=== PATIENT | male | born 1950 | race Caucasian/White ===

== ENCOUNTER → 2020-02-15 14:44 | Outpatient (BNVA) | payer OTHER, SELFPAY | PROVIDERS: PCP Internal Medicine; Visit Provider Urology | DX: Z76.89 Persons encountering health services in other specified circumstances (principal) ==

== ENCOUNTER → 2021-02-20 12:27 | Outpatient (BNVA) | payer OTHER, SELFPAY | PROVIDERS: PCP Internal Medicine; Visit Provider Urology ==

== ENCOUNTER → 2022-02-20 13:20 | Outpatient (BNVA) | payer OTHER, SELFPAY | PROVIDERS: PCP Internal Medicine; Visit Provider Urology | DX: C61 Malignant neoplasm of prostate (principal) ==

== ENCOUNTER 2023-02-21 13:44 | Outpatient (AMB) | payer OTHER, SELFPAY ==
--- NOTE | 2023-02-21 13:45 | MHC.OFFVIS ---
Intake Intake Visit Reasons: 1Y PSA(psa?) Intake Note: Patient is Present for Telephone Follow Up Urology Med: None Antibiotic Allergy: None Blood Thinner: None Allergies No Known Allergies Allergy (Verified 02/20/22 13:20) HPI HPI Comments History of Present Illness Details Nitin is a pleasant male. He is a patient of . He is seen for the following urologic conditions - prostate cancer - erectile dysfunction Telemedicine evaluation 15 minute consultation DoxSiOxitry marcela Video attempted PSA remains low Represcribed medication for erections Use of TriMix for erectile management Prostate cancer: Robotic prostatectomy 2011 intermediate risk Everything stable Minimal leakage Erectile dysfunction that is responsive to medications Prostate cancer was diagnosed Dr Starks 2011, Intermediate risk, low volume per risk assessment.. Diagnosis was reached by needle biopsy, for elevated PSA. The Suraj grade is 3+4. TNM Classification of Malignant Tumours (TNM) T1c. The D'Alyce (NCCN) risk category is Intermediate Risk (PSA 10-20, Gl 7, T2) Initial therapy included Robotic prostatectomy, Followup with observation. Recent labs included a PSA (prostate-specific antigen) below 0.1, October 2015, < 0.1, May 2015 0.1, T 598 11/17 - PSA < 0.1, 06/18 , a PSA (prostate-specific antigen), < 0.1, 01/18 < 0.1, 01/19 < 0.1, 02/19 <0.1, 02/20 <0.1, 02/21 <0.1, 02/22 <0.1 Associated conditions erectile dysfunction Yes rectal urgency Yes Therapeutic plan: Doing well with urination Erectile dysfunction: Trimix - needs Rx He presents today for for continued evaluation and management of erectile dysfunction. Procedure(s)/Diagnosis causing dysfunction include a radical prostatectomy Current treatment includes Penile injection Tri-mix 25 units Treatment side effects include - Did have episode of priapism after initial testing a number of years ago. [facility] Medical History Prostate cancer OA (osteoarthritis) Allergies Nocturia Incomplete emptying of bladder Strain of rectus abdominis muscle Inguinal pain Prostate cancer Erectile dysfunction Urgency-frequency syndrome Surgical History History of surgery Review of Systems Const All systems reviewed & are unremarkable except as noted in HPI and below Reports no additional complaints Resp Reports no additional complaints GI Reports no additional complaints Reports as per HPI Musc Reports no additional complaints Physical Exam Telemedicine evaluation Appropriate responses Regular breathing rate and rhythm HEENT Head: Yes normal to inspection Ears: hearing grossly normal bilaterally Eyes General: appearance normal, both eyes and all related structures Neck Neck: Yes normal visual inspection Chest Chest palpation & inspection: normal inspection of the chest Resp Effort & Inspection: normal respiratory effort and able to speak in complete sentences Assessment & Plan Assessment & Plan (1) Prostate cancer: Comment: 2011 RALP for 4+3 Code(s): C61 - Malignant neoplasm of prostate (2) Erectile dysfunction after radical prostatectomy: Code(s): N52.31 - Erectile dysfunction following radical prostatectomy Plan Three month follow-up office Patient Instructions: Imaging studies, laboratory and physical exam results were discussed and reviewed in detail. No major barriers to patient understanding were identified. An opportunity to ask questions regarding the treatment plan was provided. All questions were answered. The patient expressed understanding and agreement with the above treatment plan. The patient is aware they should contact our office by phone for worsening of their current condition or the appearance of new urologic symptoms. Compliance is encouraged with any medications and followup testing that is ordered. It is a privilege to participate in the urologic care of your patient. If you have any questions or concerns regarding treatment for the above conditions, or other urologic issues, please do not hesitate to contact me. The office telephone contact is [phone]. This note is constructed using voice recognition software. While every effort has been made to ensure accuracy preschool paraprofessional errors may have been included. Yours sincerely, Dr Guanaco Starks MD, [facility] - Urology Providers of Expert, Compassionate Care for the Genitourinary System Telehealth Telehealth Location of provider rendering services: practice address Location of patient: address on file Patient Identification confirmed using: Name, : Yes Telehealth method: video Patient verbally consented to treatment: Yes Patient verbally consented to billing insurance company: Yes Patient informed of any privacy concerns related to visit: Yes Coding Level of Care Code Tele Est Pt Level 3 (32845) Diagnoses Prostate cancer C61 Erectile dysfunction after radical prostatectomy N52.31
== END 2023-02-21 14:51 | disposition home or self-care (01) ==
LOC: HO.HUSH 13:44
PROVIDERS: PCP Internal Medicine; Visit Provider Urology
DX: C61 Malignant neoplasm of prostate (principal); N52.31 Erectile dysfunction following radical prostatectomy
CPT/HCPCS: 99213

== ENCOUNTER → 2023-02-21 13:44 | Outpatient (BNVA) | payer OTHER, SELFPAY | PROVIDERS: PCP Internal Medicine; Visit Provider Urology ==

== ENCOUNTER 2023-05-21 12:52 | Outpatient (AMB) | payer OTHER, SELFPAY ==
--- NOTE | 2023-05-21 12:55 | A.OFFVIS_ITS ---
Intake Visit Reasons: 3M Follow Up Intake Note: Patient presents today for a follow-up Meds- None Allergies to Antibiotic- No Known Allergies Blood Thinner- None Digital Composer Required: No Accompanied by: Self / Same As Patient Allergies No Known Allergies Allergy (Verified 05/21/23 13:21) HPI Comments Details: Nitin is a pleasant male. He is a patient of . He is seen for the following urologic conditions - prostate cancer - erectile dysfunction Has some bladder instability Recommend pelvic floor exercises with trial tadalafil 5 mg daily Prostate cancer: Robotic prostatectomy 2011 intermediate risk Everything stable Minimal leakage Erectile dysfunction that is responsive to medications Prostate cancer was diagnosed Dr Starks 2011, Intermediate risk, low volume per risk assessment.. Diagnosis was reached by needle biopsy, for elevated PSA. The Suraj grade is 3+4. TNM Classification of Malignant Tumours (TNM) T1c. The D'Alyce (NCCN) risk category is Intermediate Risk (PSA 10-20, Gl 7, T2) Initial therapy included Robotic prostatectomy, Followup with observation. Recent labs included a PSA (prostate-specific antigen) below 0.1, October 2015, < 0.1, May 2015 0.1, T 598 11/17 - PSA < 0.1, 06/18 , a PSA (prostate-specific antigen), < 0.1, 01/18 < 0.1, 01/19 < 0.1, 02/19 <0.1, 02/20 <0.1, 02/21 <0.1, 02/22 <0.1 Associated conditions erectile dysfunction Yes rectal urgency Yes Therapeutic plan: Doing well with urination Erectile dysfunction: Trimix - needs Rx He presents today for for continued evaluation and management of erectile dysfunction. Procedure(s)/Diagnosis causing dysfunction include a radical prostatectomy Current treatment includes Penile injection Tri-mix 25 units Treatment side effects include - Did have episode of priapism after initial testing a number of years ago. [facility] Medical History Prostate cancer OA (osteoarthritis) Allergies Nocturia Incomplete emptying of bladder Strain of rectus abdominis muscle Inguinal pain Prostate cancer Erectile dysfunction Urgency-frequency syndrome Surgical History History of surgery Review of Systems Const Denies chills and Denies fever(s) Card Reports no additional complaints and Denies syncope Resp Denies cough GI Denies abdominal pain and Denies heartburn Reports as per HPI and Denies change in libido Neuro Denies syncope Psych Denies change in libido Endo Denies change in libido Physical Exam Const General: cooperative, healthy appearing, comfortable and no acute distress Orientation/consciousness: patient oriented x3 HEENT Face and sinus: Yes normal facial exam Mouth: moist mucous membranes Neck Neck: Yes normal visual inspection, Yes full ROM and Yes trachea midline Chest Chest palpation & inspection: normal inspection of the chest Resp Effort & Inspection: normal respiratory effort, able to speak in complete sentences and no respiratory distress GI Inspection: Yes normal to inspection Back/Spine/Pelvis Cervical Spine: normal cervical lordosis Thoracic/Lumbar Spine: thoracic and lumbar spine normal to inspection Skin General skin exam: no rashes or lesions noted Neuro General: patient oriented x3, gait normal, tone normal and moves all extremities Extrem General: Yes normal to inspection and Yes capillary refill normal Assessment & Plan Assessment & Plan (1) Male stress incontinence: Code(s): N39.3 - Stress incontinence (female) (male) Category: Medical (2) Bladder instability: Code(s): N32.89 - Other specified disorders of bladder Category: Medical (3) Erectile dysfunction after radical prostatectomy: Code(s): N52.31 - Erectile dysfunction following radical prostatectomy Category: Medical Plan Three-month follow-up tele - tadalafil Medications: New tadalafil 5 mg PO DAILY 90 tabs 0RF sexual activity 90 days N32.89 - Other specified disorders of bladder Patient Instructions: Imaging studies, laboratory and physical exam results were discussed and reviewed in detail. No major barriers to patient understanding were identified. An opportunity to ask questions regarding the treatment plan was provided. All questions were answered. The patient expressed understanding and agreement with the above treatment plan. The patient is aware they should contact our office by phone for worsening of their current condition or the appearance of new urologic symptoms. Compliance is encouraged with any medications and followup testing that is ordered. It is a privilege to participate in the urologic care of your patient. If you have any questions or concerns regarding treatment for the above conditions, or other urologic issues, please do not hesitate to contact me. The office telephone contact is [phone]. This note is constructed using voice recognition software. While every effort has been made to ensure accuracy custom bike builder errors may have been included. Yours sincerely, Dr Guanaco Starks MD, [facility] - Urology Providers of Expert, Compassionate Care for the Genitourinary System
== END 2023-05-21 14:06 | disposition home or self-care (01) ==
PROVIDERS: PCP Internal Medicine; Visit Provider Urology
DX: N39.3 Stress incontinence (female) (male) (principal); N32.89 Other specified disorders of bladder; N52.31 Erectile dysfunction following radical prostatectomy
CPT/HCPCS: 99213

== ENCOUNTER → 2023-05-21 12:52 | Outpatient (BNVA) | payer OTHER, SELFPAY | PROVIDERS: PCP Internal Medicine; Visit Provider Urology ==